=== PATIENT | female | born 1935 | race Caucasian/White ===

== ENCOUNTER → 2016-08-02 | Outpatient (CLI) | payer OTHER ==
[2016-08-02 09:17] LABS: BASOPHILS # (AUTO) 0.08 10*3/UL; BASOPHILS % (AUTO) 1.1 % (0-1); EOSINOPHILS % (AUTO) 2.7 % (0-8); HEMATOCRIT 44.6 % (37.0-47.0); HEMOGLOBIN 14.7 g/dL (12.0-16.0); IMM GRAN % (AUTO) 0.1 % (0-5); IMM GRAN# (AUTO) 0.01 10*3/UL; LYMPHOCYTES # (AUTO) 1.77 10*3/uL; LYMPHOCYTES % (AUTO) 24.2 % (10-50); MEAN PLATELET VOLUME 9.6 FL (7.4-12.2); MONOCYTES % (AUTO) 6.8 % (5-15); NEUTROPHILS # (AUTO) 4.76 10*3/UL; NEUTROPHILS % (AUTO) 65.1 % (50-80); RDW COEFFICIENT OF VARIATION 14.7 % (11.5-14.5); RED BLOOD COUNT 4.45 10^6/uL (4.20-5.40); WHITE BLOOD COUNT 7.32 10^3/uL (4.8-10.8)
[2016-08-02 09:25] LABS: CALCIUM 9.6 mg/dL (8.7-10.7); POTASSIUM 4.3 meq/L (3.8-5.2); TOTAL PROTEIN 7.6 g/dL (6.1-8.0)
[2016-08-02 09:29] LABS: PLATELET MORPHOLOGY COMMENT NORMAL MORPHOLOGY (NORM)
[2016-08-02 09:48] LABS: LDL CHOLESTEROL,CALCULATED 29.2 mg/dL
== END ==
LOC: LAB 08:59
PROVIDERS: ATTEND Internal Medicine
DX: E78.5 Hyperlipidemia, unspecified (principal); R06.09 Other forms of dyspnea; M25.552 Pain in left hip
CPT/HCPCS: 36415; 80053; 80061; 82550; 84443; 85025

== ENCOUNTER → 2016-08-10 | Outpatient (CLI) | payer OTHER | LOC: MMPC 11:11 | PROVIDERS: ATTEND Surgery | DX: K80.10 Calculus of gallbladder with chronic cholecystitis without obstruction (principal) | CPT/HCPCS: 99213; G0463 ==

== ENCOUNTER → 2016-08-15 | Outpatient (CLI) | payer OTHER | LOC: MMPC 10:00 | PROVIDERS: ATTEND Specialist | DX: Z01.810 Encounter for preprocedural cardiovascular examination (principal); I25.10 Atherosclerotic heart disease of native coronary artery without angina pectoris; I25.84 Coronary atherosclerosis due to calcified coronary lesion; F17.211 Nicotine dependence, cigarettes, in remission; R00.2 Palpitations; E78.5 Hyperlipidemia, unspecified; J44.9 Chronic obstructive pulmonary disease, unspecified; K80.20 Calculus of gallbladder without cholecystitis without obstruction | CPT/HCPCS: 99213; G0463 ==

== ENCOUNTER 2016-08-23 06:56 | Day surgery (SDC) | payer OTHER ==
[~2016-08-23 06:56] MED LIST: LIDOCAINE W/ SODIUM BICARB 0.5 ML SYR ONE; Lactated Ringers 1,000 ML PRIMARY IV ONE; ceFAZolin Inj 2gm (Premix) 50 ML IV ONE
[2016-08-23] MEDS ORDERED: ROCURONIUM 10 MG/1 ML - 5 ML VIAL IVP ONE (07:18)
[2016-08-23] MEDS ORDERED: fentaNYL Inj 250 MCG/5 ML VIAL ONE (07:18)
[2016-08-23] MEDS ORDERED: MIDAZOLAM 5 MG/1 ML ONE (07:18)
[2016-08-23] MEDS ORDERED: KETOROLAC 30 MG/1 ML VIAL ONE (08:47)
[2016-08-23] MEDS ORDERED: NEOSTIGMINE 1 MG/1 ML - 10 ML ONE (08:47)
[2016-08-23] MEDS ORDERED: GLYCOPYRROLATE 0.2 MG/1 ML VIAL ONE (08:47)
--- NOTE | 2016-08-23 08:49 | DI ---
OPERATIVE CHOLANGIOGRAM, 08/23/2016 8:00 AM : Clinical History: Cholelithiasis. 4 films are submitted. Contrast is present on all films with reflux into the duodenum. There is no re tained stone in the common hepatic or common bile ducts. The visualized portions of the intrahepatic biliary tree are normal. Reading: Normal operative cholangiogram.
[2016-08-23] MEDS ORDERED: Lactated Ringers 1,000 ML PRIMARY IV ONE (09:01)
[2016-08-23] MEDS ORDERED: ONDANSETRON 4 MG/2 ML VIAL IVP PRN ×2 (09:25→09:34)
[2016-08-23] MEDS ORDERED: fentaNYL Inj 100 MCG/2 ML VIAL IVP PRN (09:25)
[2016-08-23] MEDS ORDERED: NORMAL SALINE 10 ML SYRINGE FLUSH IVP PRN ×2 (09:25→09:34)
[2016-08-23] MEDS: HYDROmorphone 2 MG/1 ML IVP PRN ×2 (09:26→09:40)
[2016-08-23] MEDS ORDERED: HYDROmorphone 2 MG/1 ML ONE (09:27)
--- NOTE | 2016-08-23 09:28 | GEN.OPNOTE ---
Operative Note Surgery Date: 08/23/16 Preoperative Diagnosis: Cholelithiasis and chronic cholecystitis. Postoperative Diagnosis: Cholelithiasis and chronic cholecystitis. Procedure: Laparoscopic cholecystectomy with intraoperative cholangiogram. Surgeon: Adam Jacome MD Drug Purchaser: Other (Tanna Silva PA-C) Anesthesia Provider: Bentley Patino CRNA Anesthesia Type: General Estimated Blood Loss (mL): 10 Fluids: 1 L of IV crystalloid. 2 g of IV Ancef at the start of the procedure. 30 mg of IV Toradol at the end of the procedure. Pathology: Specimen to pathology. Indications: Patient with multiple gallstones. Patient desired cholecystectomy to prevent future complications. She is minimally symptomatic. Findings: Some adhesions to the gallbladder. Multiple gallstones. No other intra- abdominal pathology. Intraoperative cholangiogram was normal with a normal sized duct, free flow into the duodenum, a normal distal taper. There were no filling defects. The branching pattern was normal. Complications: None. Operative Summary: The patient was taken to the operating room and placed on the operating table in the supine position. Following induction of general anesthetic the abdomen was prepped and draped in a sterile fashion. A surgical timeout was done. The infraumbilical region was infiltrated with 1/4% Marcaine with epinephrine. An incision was made. The abdominal wall was elevated. A Veres needle was placed without apparent injury and a pneumoperitoneum was induced. The veres needle was withdrawn. A 10 mm trocar was placed without apparent injury and a laparoscope was inserted. Under direct visualization and following Marcaine injection a 10 mm trocar was placed in the epigastrium and 2x5 mm trochars were placed along the costal margin. The gallbladder was grasped and elevated. Blunt dissection was used to free the cystic duct. A clip was placed along the neck of the gallbladder. A hole was made in the side wall of the cystic duct. A [place] cholangiocatheter was inserted. Intraoperative cholangiogram was taken and was normal as previously dictated. The Bola catheter was withdrawn. 2 clips were placed on the distal cystic duct and the duct was divided. The cystic artery was isolated. 2 clips were placed proximally and one distally and the artery was divided. A small posterior arterial branch was also clipped and divided with electrocautery. The gallbladder was taken from the hepatic bed using electrocautery. Hemostasis was assured. Appropriate irrigation and suctioning were performed. Final check for hemostasis was made. 5 mL of Marcaine was placed in the gallbladder fossa and 5 over the dome of the liver. The laparoscope was moved to the epigastric port. The gallbladder was grasped with a large grasper and brought up to the umbilical trocar site. The fascial defect at the umbilicus was slightly increased in size. The gallbladder was brought out through the trocar site without difficulty. The fascial defect at the umbilicus was closed with a running 0 Vicryl. A final check for hemostasis was made. The CO2 was burped from the abdominal cavity. The trochars were removed under direct visualization. The epigastric trocar site was closed with a simple stitch of 0 Vicryl in the fascia. No other trocar sites required fascial closure. The skin wounds were closed with inverted interrupted or running subcuticular 4-0 Monocryl followed by Mastisol Steri-Strips and an appropriate dressing. Patient tolerated the procedure well without complication. Patient was taken to the recovery room in stable condition. All counts were correct.
[2016-08-23] MEDS ORDERED: Lactated Ringers 1,000 ML PRIMARY IV SCH ×2 (09:30→09:45)
[2016-08-23] MEDS ORDERED: MORPHINE SULFATE 2 MG/1 ML IVP PRN (09:34)
[2016-08-23] MEDS ORDERED: HYDROcodone-APAP 5 MG -325 MG TABLET PO PRN (09:34)
[2016-08-23] MEDS ORDERED: HYDROcodone-APAP 5 MG -325 MG TABLET PO ONE (10:28)
[2016-08-23 12:19] VITALS: RESP 20; TEMP 97.2
== END 2016-08-23 11:08 | disposition home or self-care (01) ==
LOC: SDSC 06:56
PROVIDERS: ATTEND Surgery
DX: K80.10 Calculus of gallbladder with chronic cholecystitis without obstruction (principal)
CPT/HCPCS: 47563; 74300; J0690; J1885; J2704; J3010; J1170; J2250; J2710; J7120

== ENCOUNTER → 2016-09-04 | Outpatient (CLI) | payer OTHER | LOC: MMPC 11:11 | PROVIDERS: ATTEND Surgery | DX: Z90.49 Acquired absence of other specified parts of digestive tract (principal) ==

== ENCOUNTER → 2016-11-01 | Outpatient (CLI) | payer OTHER | LOC: MMPC 11:11 | PROVIDERS: ATTEND Internal Medicine | DX: M25.552 Pain in left hip (principal); E78.5 Hyperlipidemia, unspecified; Z96.642 Presence of left artificial hip joint | CPT/HCPCS: 99214; G0463 ==

== ENCOUNTER → 2016-11-07 | Outpatient (CLI) | payer OTHER | LOC: MMPC 10:00 | PROVIDERS: ATTEND Specialist | DX: R42 Dizziness and giddiness (principal); J44.9 Chronic obstructive pulmonary disease, unspecified; K21.9 Gastro-esophageal reflux disease without esophagitis | CPT/HCPCS: 99213 ==

== ENCOUNTER 2019-04-14 10:38 | Inpatient (IN) ==
[2019-04-14] MEDS ORDERED: ALBUTEROL SULFATE 2.5 MG/3 ML NEB ONE (11:11)
[2019-04-14 12:03] LABS: BASOPHILS # (AUTO) 0.05 10*3/UL; EOSINOPHILS # (AUTO) 0.15 10*3/UL; EOSINOPHILS % (AUTO) 3.1 % (0-8); Hematocrit [HCT] 29.4 % (37.0-47.0); Hemoglobin [HGB] 8.7 g/dL (12.0-16.0); MEAN CORPUSCULAR HGB CONC 29.6 g/dL (33-37); MEAN CORPUSCULAR VOLUME 99.3 FL (81-99); MEAN PLATELET VOLUME 10.4 FL (7.4-12.2); MONOCYTES # (AUTO) 0.42 10*3/UL (0.3-0.8); MONOCYTES % (AUTO) 8.6 % (5-15); NEUTROPHILS # (AUTO) 3.33 10*3/UL; NEUTROPHILS % (AUTO) 68.6 % (50-80); RED BLOOD COUNT 2.96 10^6/uL (4.20-5.40)
[2019-04-14 12:04] LABS: PLATELET MORPHOLOGY COMMENT NORMAL MORPHOLOGY (NORM); RBC MORPHOLOGY COMMENT NORMAL MORPHOLOGY (NORM); WBC MORPHOLOGY COMMENT NORMAL MORPHOLOGY (NORM)
[2019-04-14] MEDS ORDERED: FUROSEMIDE 10 MG/1 ML - 4 ML IVP ONE (12:12)
[2019-04-14 12:14] LABS: BUN/CREATININE RATIO 11.81 (6-20); SERUM ALBUMIN 4.3 g/dL (3.5-4.8)
[2019-04-14] MEDS ORDERED: cefTRIAXone Inj 1 GM in Sodium Chloride 0.9% 100 ML IV ONE (12:15)
[2019-04-14] MEDS ORDERED: cefTRIAXone Inj 2 GM in Sodium Chloride 0.9% 100 ML IV SCH (13:00)
[2019-04-14] MEDS ORDERED: LIDOCAINE W/ SODIUM BICARB 0.5 ML SYR SUBD PRN (13:32)
[2019-04-14] MEDS ORDERED: LIDOCAINE HCL 2 % 10 ML JELLY URO-JECT TOPICAL PRN (13:32)
[2019-04-14] MEDS ORDERED: AMIODARONE 200 MG TABLET PO SCH (13:32)
[2019-04-14] MEDS: ASPIRIN 81 MG (BABY) CHEWABLE TABLET PO SCH (14:57)
[2019-04-14] MEDS: METOPROLOL SUCCINATE 100 MG SR 24H TABLET PO SCH (14:57)
[2019-04-14] MEDS ORDERED: DILTIAZEM 30 MG TABLET PO SCH (15:00)
[2019-04-14] MEDS: POTASSIUM CHLORIDE 20 MEQ TAB PO SCH ×2 (15:43→21:06)
[2019-04-14] MEDS: HYDROcodone-APAP 10 MG-325 MG TABLET PO PRN ×2 (16:40→21:06)
[2019-04-14] MEDS: PANTOPRAZOLE 40 MG TABLET PO SCH (21:06)
[2019-04-14] MEDS: Rosuvastatin Tab 20 MG TAB PO SCH (21:06)
[2019-04-15] MEDS: HYDROcodone-APAP 10 MG-325 MG TABLET PO PRN ×4 (04:12→22:49)
[2019-04-15 05:03] LABS: BUN/CREATININE RATIO 12.72 (6-20); SERUM ALBUMIN 3.8 g/dL (3.5-4.8)
[2019-04-15] MEDS: ASPIRIN 81 MG (BABY) CHEWABLE TABLET PO SCH (09:11)
[2019-04-15] MEDS: METOPROLOL SUCCINATE 100 MG SR 24H TABLET PO SCH (09:11)
[2019-04-15] MEDS: POTASSIUM CHLORIDE 20 MEQ TAB PO SCH ×2 (09:11→20:38)
[2019-04-15] MEDS: FUROSEMIDE 10 MG/1 ML - 2 ML VIAL IVP SCH (12:53)
[2019-04-15] MEDS: Rosuvastatin Tab 20 MG TAB PO SCH (20:38)
[2019-04-15] MEDS: PANTOPRAZOLE 40 MG TABLET PO SCH (20:38)
[2019-04-15] MEDS: Warfarin 5 MG TAB PO SCH (20:39)
[2019-04-16 05:24] LABS: BASOPHILS # (AUTO) 0.07 10*3/UL; BASOPHILS % (AUTO) 1.3 % (0-1); EOSINOPHILS # (AUTO) 0.32 10*3/UL; EOSINOPHILS % (AUTO) 5.8 % (0-8); Hematocrit [HCT] 25.8 % (37.0-47.0); Hemoglobin [HGB] 7.5 g/dL (12.0-16.0); LYMPHOCYTES # (AUTO) 1.19 10*3/uL; MEAN CORPUSCULAR HGB CONC 29.1 g/dL (33-37); MEAN CORPUSCULAR VOLUME 99.6 FL (81-99); MONOCYTES # (AUTO) 0.57 10*3/UL (0.3-0.8); MONOCYTES % (AUTO) 10.3 % (5-15); NEUTROPHILS # (AUTO) 3.35 10*3/UL; NEUTROPHILS % (AUTO) 60.8 % (50-80); RED BLOOD COUNT 2.59 10^6/uL (4.20-5.40)
[2019-04-16 05:29] LABS: PLATELET MORPHOLOGY COMMENT NORMAL MORPHOLOGY (NORM); RBC MORPHOLOGY COMMENT NORMAL MORPHOLOGY (NORM); WBC MORPHOLOGY COMMENT NORMAL MORPHOLOGY (NORM)
[2019-04-16 05:45] LABS: BUN/CREATININE RATIO 15.45 (6-20); SERUM ALBUMIN 3.7 g/dL (3.5-4.8)
[2019-04-16] MEDS: FUROSEMIDE 10 MG/1 ML - 2 ML VIAL IVP SCH ×2 (07:07→13:18)
[2019-04-16] MEDS: HYDROcodone-APAP 10 MG-325 MG TABLET PO PRN ×3 (07:14→19:32)
[2019-04-16] MEDS: METOPROLOL SUCCINATE 100 MG SR 24H TABLET PO SCH (09:25)
[2019-04-16] MEDS: POTASSIUM CHLORIDE 20 MEQ TAB PO SCH ×2 (09:25→21:03)
[2019-04-16] MEDS: ASPIRIN 81 MG (BABY) CHEWABLE TABLET PO SCH (09:26)
[2019-04-16] MEDS ORDERED: LACTULOSE 20 GM PACKET PO ONE (12:15)
[2019-04-16 17:23] LABS: Hematocrit [HCT] 28.6 % (37.0-47.0); Hemoglobin [HGB] 8.3 g/dL (12.0-16.0); MEAN CORPUSCULAR VOLUME 99.7 FL (81-99); MEAN PLATELET VOLUME 10.4 FL (7.4-12.2); RED BLOOD COUNT 2.87 10^6/uL (4.20-5.40)
[2019-04-16] MEDS: Rosuvastatin Tab 20 MG TAB PO SCH (21:03)
[2019-04-16] MEDS: PANTOPRAZOLE 40 MG TABLET PO SCH (21:03)
[2019-04-16] MEDS: Warfarin 5 MG TAB PO SCH (21:03)
[2019-04-17] MEDS: HYDROcodone-APAP 10 MG-325 MG TABLET PO PRN ×2 (01:57→08:26)
[2019-04-17 04:30] LABS: Hematocrit [HCT] 24.9 % (37.0-47.0); Hemoglobin [HGB] 7.2 g/dL (12.0-16.0); MEAN CORPUSCULAR HGB CONC 28.9 g/dL (33-37); MEAN CORPUSCULAR VOLUME 98.8 FL (81-99); MEAN PLATELET VOLUME 10.7 FL (7.4-12.2); RED BLOOD COUNT 2.52 10^6/uL (4.20-5.40)
[2019-04-17] MEDS: POTASSIUM CHLORIDE 20 MEQ TAB PO SCH (08:26)
[2019-04-17] MEDS: ASPIRIN 81 MG (BABY) CHEWABLE TABLET PO SCH (08:26)
[2019-04-17] MEDS: METOPROLOL SUCCINATE 100 MG SR 24H TABLET PO SCH (08:27)
[2019-04-17] MEDS: FUROSEMIDE 10 MG/1 ML - 2 ML VIAL IVP SCH ×2 (08:46→12:21)
[2019-04-17] MEDS ORDERED: HYDROcodone-APAP 10 MG-325 MG TABLET PO PRN (11:36)
[2019-04-17 13:46] VITALS: BP 115/48; RESP 16; TEMP 98.8; O2SAT 99
[2019-04-18] MEDS ORDERED: Warfarin Tab 2.5 MG TAB PO SCH (21:00)
== END 2019-04-17 14:27 | disposition short-term general hospital (02) | DRG 293 ==
LOC: ER 10:38 → MED/SURG 13:22
PROVIDERS: ADMIT Internal Medicine; ATTEND Internal Medicine